=== PATIENT | female | born 1955 | race Caucasian/White ===

== ENCOUNTER 2017-08-27 09:54 | Day surgery (SDC) | payer OTHER ==
[2017-08-27] MEDS ORDERED: LACTATED RINGERS 1,000 ML IV ONE (10:25)
[2017-08-27] MEDS ORDERED: fentaNYL 250 MCG/5 ML VIAL IVP ONE (10:59)
[2017-08-27] MEDS ORDERED: MIDAZOLAM 2 MG/2 ML VIAL IVP ONE (10:59)
[2017-08-27 11:38] VITALS: BP 106/59
== END 2017-08-27 09:55 | disposition home or self-care (01) ==
LOC: SDS 09:54
PROVIDERS: ATTEND Surgery
PROC: 0DBK8ZX Excision of Ascending Colon, Via Natural or Artificial Opening Endoscopic, Diagnostic (ICD-10-PCS; principal; 2017-08-27 12:00)
DX: Z12.11 Encounter for screening for malignant neoplasm of colon (principal); D12.2 Benign neoplasm of ascending colon; K57.30 Diverticulosis of large intestine without perforation or abscess without bleeding; K64.8 Other hemorrhoids
CPT/HCPCS: 45380; J3010; J7120; 88305